=== PATIENT | female | born 1990 | race Caucasian/White ===

== ENCOUNTER → 2017-08-11 | Outpatient (CLI) | payer OTHER ==
[~2017-08-11] MED LIST: AMOXICILLIN500 MG PO; ASCORBIC ACID500 M3 PO; AUGMENTIN500 MG PO; BACTRIM,SEPT1 TABLE1 PO; BACTRIM,SEPT1 TABLET PO; CIPRO500 MG PO; CLONAZEPAM0.5 MG PO; CLONAZEPAM1 MG PO; CRANBERRY PO; ERYTHROMYCIN-23.6 GM TP; GRALISE300 MG PO; KEFLEX500 MG PO; KEPPRA1000 MG PO; KEPPRA500 MG PO; KLONOPIN0.5 M1 PO; LAMICTAL200 MG PO; LEVAQUIN500 MG PO; LEVETIRACETAM500 M1 PO; MACROBID100 MG PO; MOTRIN600 MG PO; NEURONTIN600 MG PO; NITROFURANTOIN50 MG PO; NYSTATIN-TRIAMC15 GM TP; VOLTAREN 1% GE100 GM TP
[2017-08-11 17:19] LABS: CANDIDA DNA PROBE NEGATIVE; GARDNERELLA DNA PROBE NEGATIVE; INTERNAL CONTROL VALID? YES
== END | disposition home or self-care (01) ==
LOC: AMB 09:36
PROVIDERS: Obstetrics & Gynecology Gynecology
PROC: 0UJMXZZ Inspection of Vulva, External Approach (ICD-10-PCS; principal; 2017-08-11)
DX: N89.8 Other specified noninflammatory disorders of vagina (principal); B37.3 Candidiasis of vulva and vagina; Z87.440 Personal history of urinary (tract) infections; G80.9 Cerebral palsy, unspecified; N94.89 Other specified conditions associated with female genital organs and menstrual cycle; G40.909 Epilepsy, unspecified, not intractable, without status epilepticus; F41.9 Anxiety disorder, unspecified
CPT/HCPCS: 87070; 87480; 87510; 87660; 99213

== ENCOUNTER 2018-03-02 19:24 | Emergency (ER) | payer OTHER ==
[~2018-03-02] VITALS: Ht 147.3 cm; Wt 85.0 kg
[2018-03-02 20:22] LABS: BASOPHIL (%) 0.2 % (0-1); EOSINOPHIL (%) 0.7 % (0-5); EOSINOPHIL COUNT 0.1 K/uL (0-0.3); HEMATOCRIT 37.9 % (36.0-46.0); HEMOGLOBIN 12.6 G/DL (11.9-15.5); IMMATURE GRANULOCYTE (%) 0.5 % (0.0-0.7); LYMPHOCYTE (%) 14.6 % (15-42); LYMPHOCYTE COUNT 2.7 K/uL (1.0-2.8); MCH 28.7 PG (29.0-34.0); MCHC 33.2 G/DL (30.0-36.0); MCV 86.3 FL (83-99); MONOCYTE (%) 7.3 % (3-12); MONOCYTE COUNT 1.4 K/uL (0-0.8); NEUTROPHIL (%) 76.7 % (45-76); NEUTROPHIL COUNT 14.2 K/uL (1.8-6.4); PLATELET COUNT 339 K/uL (156-360); RBC DIS.WIDTH-SD 41.1 % (39-53); RED BLOOD COUNT 4.39 M/uL (3.80-5.20); WHITE BLOOD COUNT 18.6 K/uL (4.1-10.2)
[2018-03-02 20:32] LABS: CHLORIDE 103 mEq/L (99-109); SODIUM 139 mEq/L (136-147)
[2018-03-02 20:34] LABS: GLUCOSE 95 mg/dL (70-99)
[2018-03-02 20:36] LABS: TOTAL BILIRUBIN 0.4 mg/dL (0.0-1.0)
[2018-03-02 20:38] LABS: ALKALINE PHOSPHATASE 107 IU/L (3-129); CREATININE 0.7 mg/dL (0.6-1.3); GFR ESTIMATE (CALCULATED) > 59 mL/min/
[2018-03-02 20:39] LABS: UREA NITROGEN (BUN) 10 mg/dL (9-23)
[2018-03-02 20:40] LABS: AST (GOT) 18 IU/L (2-34)
[2018-03-02 20:41] LABS: ALT (GPT) 26 IU/L (3-49)
[2018-03-02 20:53] LABS: APPEARANCE CLEAR ((CLEAR)); BILIRUBIN NEGATIVE; BLOOD NEGATIVE; COLOR YELLOW ((YELLOW)); GLUCOSE (STRIP) NEGATIVE; KETONES NEGATIVE; LEUKOCYTES NEGATIVE; NITRITE NEGATIVE; PROTEIN (STRIP) NEGATIVE; SPECIFIC GRAVITY 1.024 (1.000-1.030); UCUL ADDED? NO; UROBILINOGEN 0.2 MG/DL (0.2-1.0)
[2018-03-02] MEDS ORDERED: KEFLEX500 MG PO (22:30)
[2018-03-03 00:30] VITALS: BP 112/82
[2018-03-03 01:58] LABS: ERTH.SED.RATE > 130 MM/HR (0-20)
== END 2018-03-03 00:30 | disposition home or self-care (01) ==
LOC: EME → EDBD 19:24 → EME 03-03 00:30
PROVIDERS: Emergency Medicine
DX: M70.41 Prepatellar bursitis, right knee (principal); S80.01XA Contusion of right knee, initial encounter; R50.9 Fever, unspecified; W05.0XXA Fall from non-moving wheelchair, initial encounter; F72 Severe intellectual disabilities
CPT/HCPCS: 73560; 80053; 81003; 85025; 85651; 86140; 99281; 99285

== ENCOUNTER 2018-03-08 12:36 | Emergency (ER) | payer OTHER ==
[~2018-03-08] VITALS: Ht 149.9 cm; Wt 86.2 kg
[2018-03-08 14:19] LABS: HEMATOCRIT 37.4 % (36.0-46.0); HEMOGLOBIN 12.4 G/DL (11.9-15.5); MCH 28.6 PG (29.0-34.0); MCHC 33.2 G/DL (30.0-36.0); MCV 86.2 FL (83-99); PLATELET COUNT 427 K/uL (156-360); RBC DIS.WIDTH-CV 12.9 % (11.8-14.6); RBC DIS.WIDTH-SD 40.4 % (39-53); RED BLOOD COUNT 4.34 M/uL (3.80-5.20); WHITE BLOOD COUNT 15.8 K/uL (4.1-10.2)
[2018-03-08 15:00] LABS: CHLORIDE 106 mEq/L (99-109); POTASSIUM 3.9 mEq/L (3.7-5.4); SODIUM 139 mEq/L (136-147)
[2018-03-08 15:02] LABS: GLUCOSE 80 mg/dL (70-99)
[2018-03-08 15:06] LABS: CREATININE 0.6 mg/dL (0.6-1.3); GFR ESTIMATE (CALCULATED) > 59 mL/min/
[2018-03-08 15:07] LABS: UREA NITROGEN (BUN) 11 mg/dL (9-23)
[2018-03-08 15:41] LABS: C-REACTIVE PROTEIN 46.7 MG/L (0-10)
[2018-03-08 16:11] LABS: ERTH.SED.RATE 111 MM/HR (0-20)
[2018-03-08 18:12] VITALS: BP 125/78
== END 2018-03-08 18:14 | disposition home or self-care (01) ==
LOC: EME 12:36
PROVIDERS: Family Medicine
DX: L03.115 Cellulitis of right lower limb (principal); F79 Unspecified intellectual disabilities; Z99.3 Dependence on wheelchair; G80.9 Cerebral palsy, unspecified; G40.909 Epilepsy, unspecified, not intractable, without status epilepticus
CPT/HCPCS: 73560; 80048; 85027; 85651; 86140; 99281; 99284

== ENCOUNTER 2018-04-18 13:02 | Emergency (ER) | payer OTHER ==
[~2018-04-18] VITALS: Ht 152.4 cm; Wt 83.0 kg
[2018-04-18 16:14] VITALS: BP 131/81
== END 2018-04-18 16:43 | disposition home or self-care (01) ==
LOC: EME 13:02
DX: R09.89 Other specified symptoms and signs involving the circulatory and respiratory systems (principal); G80.9 Cerebral palsy, unspecified; F79 Unspecified intellectual disabilities; Z86.69 Personal history of other diseases of the nervous system and sense organs
CPT/HCPCS: 70360; 71046; 99281; 99283